=== PATIENT | male | born 1995 | race Caucasian/White ===

== ENCOUNTER 2018-04-25 23:36 | Emergency (ER) | payer MEDICAID, OTHER ==
[2018-04-26] MEDS ORDERED: HYDROCODONE/ACETAMINOPHEN 10/325 MG TAB ONE (00:03)
[2018-04-26] MEDS ORDERED: LIDOCAINE 1%-EPI 1:100,000 20 ML VIAL IJ ONE (00:15)
== END 2018-04-26 00:51 | disposition home or self-care (01) ==
LOC: EDH 23:36
DX: S06.0X0A Concussion without loss of consciousness, initial encounter (principal); S01.511A Laceration without foreign body of lip, initial encounter; G89.29 Other chronic pain; M54.9 Dorsalgia, unspecified; F12.10 Cannabis abuse, uncomplicated; Z72.0 Tobacco use; W22.8XXA Striking against or struck by other objects, initial encounter; Y93.E1 Activity, personal bathing and showering; Y92.89 Other specified places as the place of occurrence of the external cause; Y99.8 Other external cause status
CPT/HCPCS: 12051; 99284; J3490

== ENCOUNTER 2018-12-30 14:43 | Emergency (ER) | payer OTHER | END 2018-12-30 16:22 | disposition home or self-care (01) | LOC: EDH 14:43 | DX: J41.0 Simple chronic bronchitis (principal); F12.10 Cannabis abuse, uncomplicated; Z90.49 Acquired absence of other specified parts of digestive tract; Z72.0 Tobacco use | CPT/HCPCS: 71045 ==

== ENCOUNTER 2019-01-27 20:44 | Emergency (ER) | payer OTHER | END 2019-01-27 21:46 | disposition home or self-care (01) | LOC: EDH 20:44 | DX: M62.838 Other muscle spasm (principal); G89.29 Other chronic pain; F12.10 Cannabis abuse, uncomplicated; Z90.49 Acquired absence of other specified parts of digestive tract | CPT/HCPCS: 99281 ==